=== PATIENT | female | born 1995 | race Caucasian/White ===

== ENCOUNTER 2019-03-12 09:08 | Emergency (ER) | payer OTHER ==
[~2019-03-12] VITALS: Ht 162.6 cm; Wt 59.0 kg
[~2019-03-12 09:08] MED LIST: ALAVERT10 MG PO; CELEXA20 MG PO; CLARITIN10 M2 PO; CLONAZEPAM1 MG PO; FLUOXETINE HCL20 M1 PO; HYDROCODON-ACE1 EA11 PO; NORCO 5-325 TA1 EACH PO; PROAIR HFA8.5 GM IH; SEROQUEL100 MG PO; SEROQUEL50 MG PO; TRAMADOL HCL50 MG PO; VICODIN 5-3001 EACH PO
--- OUTSIDE RECORDS SUMMARY | 2019-03-12 09:10 | XMS ---
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 Daniel has no Care Guidelines for this patient. [place] VISIT COUNT (12 MO.) 1 ANA Cavazos TOTAL 1 NOTE: Visits indicate total known visits. ED/C VISIT TRACKING (12 MO.) 03/12/2019 09:09 [facility] [place] TYPE: Emergency COMPLAINT: - SEIZURE INPATIENT VISIT TRACKING (12 MO.) No inpatient visits to display in this time frame [id number]
[2019-03-12] MEDS ORDERED: ATIVAN1 MG PO (09:25)
[2019-03-12] MEDS ORDERED: KEPPRA500 MG PO (10:49)
== END 2019-03-12 11:17 | disposition home or self-care (01) ==
LOC: ED 09:08
DX: G40.909 Epilepsy, unspecified, not intractable, without status epilepticus (principal); Z79.899 Other long term (current) drug therapy; F17.200 Nicotine dependence, unspecified, uncomplicated
CPT/HCPCS: 80053; 81001; 82542; 84702; 85025; 96361; 96374; 99284-25; 99406; J1953; J7030; J7060

== ENCOUNTER 2019-05-12 17:48 | Emergency (ER) | payer OTHER ==
[~2019-05-12] VITALS: Ht 162.6 cm; Wt 59.0 kg
--- OUTSIDE RECORDS SUMMARY | ~2019-05-12 | XMS | Encounter Summary ---
Demographics + + + | Address | [address] | | | [place] [address] | + + + | Home Phone | | + + + | Preferred Language | Unknown | + + + | Marital Status | | + + + | Buddhist Affiliation | Unknown | + + + | Race | Unknown | + + + | Ethnic Group | Unknown | + + + Author + + + | Author | [facility] | | | and [place] | + + + | Organization | [facility] | | | and [place] | + + + | Address | Unknown | + + + | Phone | Unavailable | + + + Support + + +---------+ + | Name | Relationship | Address | Phone | + + +---------+ + | Aniyah Ez | ECON | Unknown | | + + +---------+ + Care Team Providers + +------+ + | Care Wood Shop Teacher Name | Role | Phone | + +------+ + PCP | Unavailable | + +------+ + Encounter Details +--------+ + + + + | Date | Type | Department | Care Team | Description | +--------+ + + + + | 03/17/ | Hospital | [facility] | Richie Ng | | | 2012 | Encounter | HOSPITAL EMERGENCY | [address] | | | | | [address] [place], [place] | | | | | [place] | [address] | | | | | [address] | | | | | | [phone] | | | +--------+ + + + + Social History + +-------+ +--------+------+ | Tobacco Use | Types | Packs/Day | Years | Date | | | | | Used | | + +-------+ +--------+------+ | Never Assessed | | | | | + +-------+ +--------+------+ + + + | Sex Assigned at | Date Recorded | | | | + + + | Not on file | | + + + + + + + | Job Start Date | Occupation | Industry | + + + + | Not on file | Not on file | Not on file | + + + + + + + + | Travel History | Travel Start | Travel End | + + + + + + | No recent travel history available. | + + documented as of this encounter Plan of Treatment Not on filedocumented as of this encounter Visit Diagnoses Not on filedocumented in this encounter"
--- OUTSIDE RECORDS SUMMARY | ~2019-05-12 | XMS | Encounter Summary ---
Demographics + + + | Address | [address] | | | [place] [address] | + + + | Home Phone | | + + + | Preferred Language | Unknown | + + + | Marital Status | | + + + | Baptist Affiliation | Unknown | + + + | Race | Unknown | + + + | Ethnic Group | Unknown | + + + Author + + + | Author | [facility] | | | and [place] | + + + | Organization | [facility] | | | and [...] Team Providers + +------+ + | Care Racing Mechanic Name | Role | Phone | + +------+ + PCP | Unavailable | + +------+ + Encounter Details +--------+ + + + + | Date | Type | Department | Care Team | Description | +--------+ + + + + | 09/20/ | Hospital | [facility] | Mitchell Castillo | | | 2012 | Encounter | HOSPITAL EMERGENCY | MD [address] | | | | | CENTER [address] | [place] | | | | | [place] | [address] | | | | | [address] | [phone] | | | | | [phone] | | | +--------+ + + + [...]
--- OUTSIDE RECORDS SUMMARY | ~2019-05-12 | XMS | Encounter Summary ---
Demographics + + + | Address | [address] | | | [place] [address] | + + + | Home Phone | | + + + | Preferred Language | Unknown | + + + | Marital Status | | + + + | Uatsdin Affiliation | Unknown | + + + | Race | Unknown | + + + | Ethnic Group | Unknown | + + + Author + + + | Author | [facility] | | | and [place] | + + + | Organization | [facility] | | | and [...] Team Providers + +------+ + | Care Drum Tester Name | Role | Phone | + [...] | CENTER [address] | [address] [place], [place] | | | | | [place] | [address] | | | | | [address] | | | | | | [phone] | | | +--------+ + + + [...]
--- OUTSIDE RECORDS SUMMARY | ~2019-05-12 | XMS | Clinical Summary ---
Demographics + + + | Address | [address] [place] [address] | | | [place] [address] | + + + | Home Phone | | + + + | Preferred Language | Unknown | + + + | Marital Status | | + + + | Episcopal Affiliation | Unknown | + + + | Race | Unknown | + + + | Ethnic Group | Unknown | + + + Author + + + | Author | [facility] | | | and [place] | + + + | Organization | [facility] | | | and [...] Team Providers + +------+ + | Care Qa Automation Architect Name | Role | Phone | + +------+ + PCP | Unavailable | + +------+ + Allergies Not on File Medications Not on file Active Problems Not on file Social History + +-------+ +--------+------+ | Tobacco [...] recent travel history available. | + + Last Filed Vital Signs Not on file Plan of Treatment + + + + + | Health Maintenance | Due Date | Last Done | Comments | + + + + + | Vaccine: | | | | | Dtap/Tdap/Td (1 - | 8 | | | | Tdap) | | | | + + + + + | Vaccine: HPV (1 - | | | | | Female 2-dose | 8 | | | | series) | | | | + + + + + | Cervical Cancer | | | | | Screening (Pap) | 8 | | | + + + + + | Vaccine: Influenza | | | | | (#1) | 9 | | | + + + + + Results Not on filefrom Last 3 Months Insurance + +--------+ +--------+ +---------+--------+ | Payer | Benefi | Subscriber | Effect | Phone | Address | Type | | | t Plan | ID | silver | | | | | | / | | Dates | | | | | | Group | | | | | | + +--------+ +--------+ +---------+--------+ | [employer] | [employer] | [id number] | 03/20/ | [phone] | | Medica | | MEDICAID HMO | HEALTH | | 2019-P | 1 | | id | | | MDCD | | resent | | | | | | [place] | | | | | | + +--------+ +--------+ +---------+--------+ + +--------+ +--------+ + + | Guarantor Name | Accoun | Relation to | Date | Phone | Billing Address | | | t Type | Patient | of | | | | | | | | | | + +--------+ +--------+ + + | Tanika Funes | Person | Self [birth year] | [address] | | | al/Fam | | 1995 | [phone] | [place] | | | juan | | | [address] (Home) | [address] | + +--------+ +--------+ + +"
--- OUTSIDE RECORDS SUMMARY | ~2019-05-12 | XMS | Encounter Summary ---
Demographics + + + | Address | [address] | | | [place] [address] | + + + | Home Phone | | + + + | Preferred Language | Unknown | + + + | Marital Status | | + + + | Synagogue Affiliation | Unknown | + + + | Race | Unknown | + + + | Ethnic Group | Unknown | + + + Author + + + | Author | [facility] | | | and [place] | + + + | Organization | [facility] | | | [...] Team Providers + +------+ + | Care Teacher Adventure Education Name | Role | Phone | + +------+ + PCP | Unavailable | + +------+ + Encounter Details +--------+ + + + + | Date | Type | Department | Care Team | Description | +--------+ + + + + | 09/16/ | Hospital | [facility] | Elpidio Gaona | | | 2012 | Encounter | HOSPITAL EMERGENCY | [address] | | | | | CENTER [address] | [place], | | | | | [place] | [place] [address] | | | | | [address] | [phone] | | | | | [phone] | | | +--------+ + + + [...]
--- OUTSIDE RECORDS SUMMARY | ~2019-05-12 | XMS | Encounter Summary ---
Demographics + + + | Address | [address] | | | [place] [address] | + + + | Home Phone | | + + + | Preferred Language | Unknown | + + + | Marital Status | | + + + | Cheondoism Affiliation | Unknown | + + + | Race | Unknown | + + + | Ethnic Group | Unknown | + + + Author + + + | Author | [facility] | | | and [place] | + + + | Organization | [facility] | | [...] Team Providers + +------+ + | Care Laboratory Equipment Cleaner Name | Role | Phone | + +------+ + PCP | Unavailable | + +------+ + Encounter Details +--------+ + + + + | Date | Type | Department | Care Team | Description | +--------+ + + + + | 03/20/ | Hospital | [facility] | Annette Engel, | | | 2012 | Encounter | HOSPITAL MED SURG | [address] | | | | | [address] [place] | [place] [address] | | | | | [place] | [phone] | | | | | [address] | | | | | | [phone] | | | +--------+ + + + [...]
--- OUTSIDE RECORDS SUMMARY | ~2019-05-12 | XMS | Encounter Summary ---
Demographics + + + | Address | [address] | | | [place] [address] | + + + | Home Phone | | + + + | Preferred Language | Unknown | + + + | Marital Status | | + + + | Rastafari Affiliation | Unknown | + + + | Race | Unknown | + + + | Ethnic Group | Unknown | + + + Author + + + | Author | [facility] | | | and [place] | + + + | Organization | [facility] | | | and [place] | + + + | Address | Unknown | + + + | Phone | Unavailable | + + + Support + + +---------+ + | Name | Relationship | Address | Phone | + + +---------+ + | Aniyah zE | ECON | Unknown | | + + +---------+ + Care Team Providers + +------+ + | Care Quarryman Name | Role | Phone | + +------+ + PCP | Unavailable | + +------+ + Encounter Details +--------+ + + + + | Date | Type | Department | Care Team | Description | +--------+ + + + + | 04/23/ | Hospital | [facility] | Annette Engel, | | | 2012 | Encounter | HOSPITAL ICU [address] | MD [address] | | | | | [address] [place] | [place] [address] | | | | | [place] | [phone] | | | | | [address] | | | | | | [phone] | | | +--------+ + + + [...]
--- OUTSIDE RECORDS SUMMARY | ~2019-05-12 | XMS | Encounter Summary ---
Demographics + + + | Address | [address] | | | [place] [address] | + + + | Home Phone | | + + + | Preferred Language | Unknown | + + + | Marital Status | | + + + | Jehovah'S Witness Affiliation | Unknown | + + + | Race | Unknown | + + + | Ethnic Group | Unknown | + + + Author + + + | Author | [facility] | | | and [place] | + + + | Organization | [facility] | | | [...] Team Providers + +------+ + | Care Patient Access Associate Name | Role | Phone | + +------+ + PCP | Unavailable | + +------+ + Encounter Details +--------+ + + + + | Date | Type | Department | Care Team | Description | +--------+ + + + + | 08/17/ | Hospital | [facility] | Miguel Pitts | | | 2013 | Encounter | HOSPITAL EMERGENCY | [address] | | | | | C[address] | [address] [place] | | | | | [place] | [place] [address] | | | | | [address] | [phone] | | | | | [phone] | | | +--------+ + + + [...] Not on filedocumented as of this encounter Procedures + +--------+ + + + | Procedure Name | Priori | Date/Time | Associated Diagnosis | Comments | | | ty | | | | + +--------+ + + + | CBC W/AUTO | STAT | 08/17/2013 | | Results for this | | DIFFERENTIAL | | 11:32 AM | | procedure are in the | | | | PDT | | results section. | + +--------+ + + + | PHOSPHORUS | STAT | 08/17/2013 | | Results for this | | | | 11:32 AM | | procedure are in the | | | | PDT | | results section. | + +--------+ + + + | MAGNESIUM | STAT | 08/17/2013 | | Results for this | | | | 11:32 AM | | procedure are in the | | | | PDT | | results section. | + +--------+ + + + | COMPREHENSIVE | STAT | 08/17/2013 | | Results for this | | METABOLIC PANEL | | 11:32 AM | | procedure are in the | | | | PDT | | results section. | + +--------+ + + + documented in this encounter Results Phosphorus (08/17/2013 11:32 AM PDT) + +-------+ + + + | Component | Value | Ref Range | Performed | Pathologist | | | | | At | Signature | + +-------+ + + + | Phosphorus | 3.1 | 2.5 - 4.9 mg/dL | EXTERNAL | | | | | | LAB | | + +-------+ + + + + + | Specimen | + + | | + + + +---------+ + + | Performing | Address | City/State/Zipcode | Phone Number | | Organization | | | | + +---------+ + + | EXTERNAL LAB | | | | + +---------+ + + Magnesium (08/17/2013 11:32 AM PDT) + +-------+ + + + | Component | Value | Ref Range | Performed | Pathologist | | | | | At | Signature | + +-------+ + + + | Magnesium | 2.1 | 1.8 - 2.4 mg/dL | EXTERNAL | | | | | | LAB | | + +-------+ + + + + + | Specimen | + + | | + + + +---------+ + + | Performing | Address | City/State/Zipcode | Phone Number | | Organization | | | | + +---------+ + + | EXTERNAL LAB | | | | + +---------+ + + CBC w/ Auto Differential (08/17/2013 11:32 AM PDT) + +-------+ + + + | Component | Value | Ref Range | Performed | Pathologist | | | | | At | Signature | + +-------+ + + + | WBC | 8.3 | 4.5 - 13.5 | EXTERNAL | | | | | 1000/mm3 | LAB | | + +-------+ + + + | RBC | 4.51 | 3.90 - 5.10 | EXTERNAL | | | | | mil/mm3 | LAB | | + +-------+ + + + | HGB, | 12.6 | 11.7 - 15.3 | EXTERNAL | | | External | | g/dL | LAB | | + +-------+ + + + | HCT, | 37.9 | 37.7 - 47.0 % | EXTERNAL | | | External | | | LAB | | + +-------+ + + + | MCV | 84 | 78 - 98 fl | EXTERNAL | | | | | | LAB | | + +-------+ + + + | MCH | 27.9 | 26.0 - 34.0 pg | EXTERNAL | | | | | | LAB | | + +-------+ + + + | MCHC | 33.2 | 32.0 - 36.0 | EXTERNAL | | | | | g/dL | LAB | | + +-------+ + + + | RDW-CV | 14.2 | <=17.0 % | EXTERNAL | | | | | | LAB | | + +-------+ + + + | RDW-SD | 42.7 | 34.0 - 57.0 fL | EXTERNAL | | | | | | LAB | | + +-------+ + + + | Platelet | 395 | 150 - 450 | EXTERNAL | | | Count | | 1000/mm3 | LAB | | | Plasma | | | | | + +-------+ + + + | MPV | 10.6 | 9.4 - 12.3 FL | EXTERNAL | | | | | | LAB | | + +-------+ + + + | % Segmented | 65 | 39 - 73 % | EXTERNAL | | | | | | LAB | | | Neutrophils | | | | | + +-------+ + + + | % | 27 | 23 - 53 % | EXTERNAL | | | Lymphocytes | | | LAB | | + +-------+ + + + | % Monocytes | 6 | 3 - 13 % | EXTERNAL | | | | | | LAB | | + +-------+ + + + | % | 1 | 0 - 7 % | EXTERNAL | | | Eosinophils | | | LAB | | + +-------+ + + + | % Basophils | 1 | 0 - 2 % | EXTERNAL | | | | | | LAB | | + +-------+ + + + | Absolute | 5.4 | 2.50 - 8.50 | EXTERNAL | | | Neutrophils | | 1000/mm3 | LAB | | + +-------+ + + + | Absolute | 2.21 | 1.50 - 6.50 | EXTERNAL | | | Lymphocytes | | 1000/mm3 | LAB | | + +-------+ + + + | Absolute | 0.52 | 0.00 - 0.80 | EXTERNAL | | | Monocytes | | 1000/mm3 | LAB | | + +-------+ + + + | Absolute | 0.11 | 0.00 - 0.70 | EXTERNAL | | | Eosinophils | | 1000/mm3 | LAB | | + +-------+ + + + | Absolute | 0.05 | 0.00 - 0.20 | EXTERNAL | | | Basophils | | 1000/mm3 | LAB | | + +-------+ + + + | SLIDE | NO | | EXTERNAL | | | REVIEWED | | | LAB | | + +-------+ + + + + + | Specimen | + + | | + + + +---------+ + + | Performing | Address | City/State/Zipcode | Phone Number | | Organization | | | | + +---------+ + + | EXTERNAL LAB | | | | + +---------+ + + Comprehensive Metabolic Panel (08/17/2013 11:32 AM PDT) + +-------+ + + + | Component | Value | Ref Range | Performed | Pathologist | | | | | At | Signature | + +-------+ + + + | Sodium | 139 | 132 - 143 | EXTERNAL | | | | | mmol/L | LAB | | + +-------+ + + + | Potassium | 3.4 | 3.3 - 4.9 | EXTERNAL | | | | | mmol/L | LAB | | + +-------+ + + + | Cl | 105 | 95 - 108 mmol/L | EXTERNAL | | | | | | LAB | | + +-------+ + + + | CO2 | 23 | 23 - 34 mmol/L | EXTERNAL | | | | | | LAB | | + +-------+ + + + | Anion Gap | 11 | 7 - 16 | EXTERNAL | | | | | | LAB | | + +-------+ + + + | Calcium | 9.1 | 8.3 - 10.0 | EXTERNAL | | | | | mg/dL | LAB | | + +-------+ + + + | Glucose | 72 | 70 - 110 mg/dL | EXTERNAL | | | | | | LAB | | + +-------+ + + + | BUN, Bld | 6 | 5 - 26 mg/dL | EXTERNAL | | | | | | LAB | | + +-------+ + + + | Creatinine | 0.9 | 0.6 - 1.3 mg/dL | EXTERNAL | | | | | | LAB | | + +-------+ + + + | BUN/Creatin | 6.7 | 7.0 - 24.0 | EXTERNAL | | | ine Ratio | | RATIO | LAB | | + +-------+ + + + | Bilirubin, | 0.4 | <=1.2 mg/dL | EXTERNAL | | | Total | | | LAB | | + +-------+ + + + | Protein, | 7.4 | 6.6 - 8.5 g/dL | EXTERNAL | | | Total | | | LAB | | + +-------+ + + + | Albumin | 3.5 | 3.0 - 4.5 g/dL | EXTERNAL | | | | | | LAB | | + +-------+ + + + | Alkaline | 133 | 60 - 270 U/L | EXTERNAL | | | Phosphatase | | | LAB | | + +-------+ + + + | ALT, | 34 | 18 - 63 U/L | EXTERNAL | | | External | | | LAB | | + +-------+ + + + | AST, | 20 | <=38 U/L | EXTERNAL | | | External | | | LAB | | + +-------+ + + + + + | Specimen | + + | | + + + +---------+ + + | Performing | Address | City/State/Zipcode | Phone Number | | Organization | | | | + +---------+ + + | EXTERNAL LAB | | | | + +---------+ + + documented in this encounter Visit Diagnoses Not on filedocumented in this encounter"
--- OUTSIDE RECORDS SUMMARY | ~2019-05-12 | XMS | Encounter Summary ---
Demographics + + + | Address | [address] | | | [place] [address] | + + + | Home Phone | | + + + | Preferred Language | Unknown | + + + | Marital Status | | + + + | Hoahaoism Affiliation | Unknown | + + + | Race | Unknown | + + + | Ethnic Group | Unknown | + + + Author + + + | Author | [facility] | | | and [place] | + + + | Organization | [facility] | | | and [...] Team Providers + +------+ + | Care Newspaper Illustrator Name | Role | Phone | + +------+ + PCP | Unavailable | + +------+ + Encounter Details +--------+ + + + + | Date | Type | Department | Care Team | Description | +--------+ + + + + | 07/29/ | Hospital | [facility] | Mitchell Castillo | | | 2013 | Encounter | HOSPITAL EMERGENCY | [address] | | | | | [address] | [place] | | | | | [place] | [address] | | | | | [address] | [phone] | | | | | [phone] | | | +--------+ + + + [...] + | CBC W/AUTO | STAT | 07/29/2013 | | Results for this | | DIFFERENTIAL | | 11:53 AM | | procedure are in the | | | | PDT | | results section. | + +--------+ + + + | , SERUM, | STAT | 07/29/2013 | | Results for this | | QUAL | | 11:53 AM | | procedure are in the | | | | PDT | | results section. | + +--------+ + + + | COMPREHENSIVE | STAT | 07/29/2013 | | Results for this | | METABOLIC PANEL | | 11:53 AM | | procedure are in the | | | | PDT | | results section. | + +--------+ + + + documented in this encounter Results , Serum, Qual (07/29/2013 11:53 AM PDT) + + + + + + | Component | Value | Ref Range | Performed | Pathologist | | | | | At | Signature | + + + + + + | HCG | NEGATIVE | NEGATIVE | EXTERNAL | | | QUALITATIVE | | | LAB | | + + + + + + | Internal QC | POSITIVE | POSITIVE | EXTERNAL | | | | | | LAB | | + + + + + + + + | Specimen | + + | | + + + +---------+ + + | Performing | Address | City/State/Zipcode | Phone Number | | Organization | | | | + +---------+ + + | EXTERNAL LAB | | | | + +---------+ + + CBC w/ Auto Differential (07/29/2013 11:53 AM PDT) + +-------+ + + + | Component | Value | Ref Range | Performed | Pathologist | | | | | At | Signature | + +-------+ + + + | WBC | 11.6 | 4.5 - 13.5 | EXTERNAL | | | | | 1000/mm3 | LAB | | + +-------+ + + + | RBC | 4.84 | 3.90 - 5.10 | EXTERNAL | | | | | mil/mm3 | LAB | | + +-------+ + + + | HGB, | 13.5 | 11.7 - 15.3 | EXTERNAL | | | External | | g/dL | LAB | | + +-------+ + + + | HCT, | 40.7 | 37.7 - 47.0 % | EXTERNAL [...] +-------+ + + + | RDW-SD | 42.9 | 34.0 - 57.0 fL | EXTERNAL | | | | | | LAB | | + +-------+ + + + | Platelet | 434 | 150 - 450 | EXTERNAL | | | Count | | 1000/mm3 | LAB | | | Plasma | | | | | + +-------+ + + + | MPV | 10.4 | 9.4 - 12.3 FL | EXTERNAL | | | | | | LAB | | + +-------+ + + + | % Segmented | 76 | 39 - 73 % | EXTERNAL | | | | | | LAB | | | Neutrophils | | | | | + +-------+ + + + | % | 17 | 23 - 53 % | EXTERNAL [...] +-------+ + + + | Absolute | 8.79 | 2.50 - 8.50 | EXTERNAL | | | Neutrophils | | 1000/mm3 | LAB | | + +-------+ + + + | Absolute | 1.99 | 1.50 - 6.50 | EXTERNAL | | | Lymphocytes | | 1000/mm3 | LAB | | + +-------+ + + + | Absolute | 0.64 | 0.00 - 0.80 | EXTERNAL | | | Monocytes | | 1000/mm3 | LAB | | + +-------+ + + + | Absolute | 0.12 | 0.00 - 0.70 | EXTERNAL | | | Eosinophils | | 1000/mm3 | LAB | | + +-------+ + + + | Absolute | 0.07 | 0.00 - 0.20 | EXTERNAL | [...] + +---------+ + + Comprehensive Metabolic Panel (07/29/2013 11:53 AM PDT) + +-------+ + + + | Component | Value | Ref Range | Performed | Pathologist | | | | | At | Signature | + +-------+ + + + | Sodium | 138 | 132 - 143 | EXTERNAL | | | | | mmol/L | LAB | | + +-------+ + + + | Potassium | 3.8 | 3.3 - 4.9 | EXTERNAL | | | | | mmol/L | LAB | | + +-------+ + + + | Cl | 102 | 95 - 108 mmol/L | EXTERNAL | | | | | | LAB | | + +-------+ + + + | CO2 | 22 | 23 - 34 mmol/L | EXTERNAL | | | | | | LAB | | + +-------+ + + + | Anion Gap | 14 | 7 - 16 | EXTERNAL | | | | | | LAB | | + +-------+ + + + | Calcium | 9.6 | 8.3 - 10.0 | EXTERNAL | | | | | mg/dL | LAB | | + +-------+ + + + | Glucose | 81 | 70 - 110 mg/dL | EXTERNAL | | | | | | LAB | | + +-------+ + + + | BUN, Bld | 10 | 5 - 26 mg/dL | EXTERNAL | | | | | | LAB | | + +-------+ + + + | Creatinine | 1 | 0.6 - 1.3 mg/dL | EXTERNAL | | | | | | LAB | | + +-------+ + + + | BUN/Creatin | 10 | 7.0 - 24.0 | EXTERNAL | | | ine Ratio | | RATIO | LAB | | + +-------+ + + + | Bilirubin, | 0.3 | <=1.2 mg/dL | EXTERNAL | | | Total | | | LAB | | + +-------+ + + + | Protein, | 8.4 | 6.6 - 8.5 g/dL | EXTERNAL | | | Total | | | LAB | | + +-------+ + + + | Albumin | 3.9 | 3.0 - 4.5 g/dL | EXTERNAL | | | | | | LAB | | + +-------+ + + + | Alkaline | 147 | 60 - 270 U/L | EXTERNAL | | | Phosphatase | | | LAB | | + +-------+ + + + | ALT, | 41 | 18 - 63 U/L | EXTERNAL | | | External | | | LAB | | + +-------+ + + + | AST, | 23 | <=38 U/L | EXTERNAL | | [...]
--- OUTSIDE RECORDS SUMMARY | ~2019-05-12 | XMS | Encounter Summary ---
Demographics + + + | Address | [address] | | | [place] [address] | + + + | Home Phone | | + + + | Preferred Language | Unknown | + + + | Marital Status | | + + + | Sikhism Affiliation | Unknown | + + + | Race | Unknown | + + + | Ethnic Group | Unknown | + + + Author + + + | Author | [facility] | | | and [place] | + + + | Organization | [facility] | | [...] Team Providers + +------+ + | Care Applications Support Analyst Name | Role | Phone | + +------+ + PCP | Unavailable | + +------+ + Encounter Details +--------+ + + + + | Date | Type | Department | Care Team | Description | +--------+ + + + + | 05/01/ | Hospital | [facility] | Elpidio Gaona | | | 2012 | Encounter | HOSPITAL EMERGENCY | MD [address] | | | | | C[address] | [place], | | | | | [place] | [place] [address] | | | | | [address] | [phone] | | | | | [phone] | | | +--------+ + + + [...]
--- OUTSIDE RECORDS SUMMARY | ~2019-05-12 | XMS | Encounter Summary ---
Demographics + + + | Address | [address] | | | [place] [address] | + + + | Home Phone | | + + + | Preferred Language | Unknown | + + + | Marital Status | | + + + | Voodoo Affiliation | Unknown | + + + | Race | Unknown | + + + | Ethnic Group | Unknown | + + + Author + + + | Author | [facility] | | | and [place] | + + + | Organization | [facility] | | [...] Team Providers + +------+ + | Care Workforce Management Analyst Name | Role | Phone | + +------+ + PCP | Unavailable | + +------+ + Encounter Details +--------+ + + + + | Date | Type | Department | Care Team | Description | +--------+ + + + + | 10/14/ | Hospital | [facility] | Miguel Pitts | | | 2012 | Encounter | HOSPITAL EMERGENCY | MD [address] | | | | | C[address] | [address] | | | | | [place] | [place] [address] | | | | | [address] | [phone] | | | | | [phone] | | | +--------+ + + + [...]
--- OUTSIDE RECORDS SUMMARY | ~2019-05-12 | XMS | Encounter Summary ---
Demographics + + + | Address | [address] | | | [place] [address] | + + + | Home Phone | | + + + | Preferred Language | Unknown | + + + | Marital Status | | + + + | Yarsanism Affiliation | Unknown | + + + | Race | Unknown | + + + | Ethnic Group | Unknown | + + + Author + + + | Author | [facility] | | | and [place] | + + + | Organization | [facility] | | | [...] Team Providers + +------+ + | Care Cattle Manager Name | Role | Phone | + [...] | | | [place] | [address] | | | | | [address] | [phone] | | | | | [phone] | | | +--------+ + + + [...]
--- OUTSIDE RECORDS SUMMARY | ~2019-05-12 | XMS | Encounter Summary ---
Demographics + + + | Address | [address] | | | [place] [address] | + + + | Home Phone | | + + + | Preferred Language | Unknown | + + + | Marital Status | | + + + | Christian Affiliation | Unknown | + + + | Race | Unknown | + + + | Ethnic Group | Unknown | + + + Author + + + | Author | [facility] | | | and [place] | + + + | Organization | [facility] | | | [...] Team Providers + +------+ + | Care Capacitor Inspector Name | Role | Phone | + +------+ + PCP | Unavailable | + +------+ + Encounter Details +--------+ + + + + | Date | Type | Department | Care Team | Description | +--------+ + + + + | 12/08/ | Hospital | [facility] | Elpidio Gaona | | | 2012 | Encounter | HOSPITAL EMERGENCY | [address] | | | | | C[address] | [place] | | | | | [place] | [place] [address] | | | | | [address] | [phone] | | | | | [phone] | | | +--------+ + + + [...]
--- OUTSIDE RECORDS SUMMARY | ~2019-05-12 | XMS | Encounter Summary ---
Demographics + + + | Address | [address] | | | [place] [address] | + + + | Home Phone | | + + + | Preferred Language | Unknown | + + + | Marital Status | | + + + | Hindu Affiliation | Unknown | + + + | Race | Unknown | + + + | Ethnic Group | Unknown | + + + Author + + + | Author | [facility] | | | and [place] | + + + | Organization | [facility] | | | and [...] Team Providers + +------+ + | Care Demand Equipment Repairer Name | Role | Phone | + +------+ + PCP | Unavailable | + +------+ + Encounter Details +--------+ + + + + | Date | Type | Department | Care Team | Description | +--------+ + + + + | 09/16/ | Hospital | [facility] | Yuliana Rivera | | | 2012 | Encounter | HOSPITAL RESPIRATORY | [address] | | | | | THERAPY [address] | [place] [address] | | | | | [address] [place] | [phone] | | | | | [address] | | | | | | [phone] | | | +--------+ + + + [...]
--- OUTSIDE RECORDS SUMMARY | ~2019-05-12 | XMS | Encounter Summary ---
Demographics + + + | Address | [address] | | | [place] [address] | + + + | Home Phone | | + + + | Preferred Language | Unknown | + + + | Marital Status | | + + + | Caodaism Affiliation | Unknown | + + + | Race | Unknown | + + + | Ethnic Group | Unknown | + + + Author + + + | Author | [facility] | | | and [place] | + + + | Organization | [facility] | | | [...] Team Providers + +------+ + | Care Stabilizer Operator Name | Role | Phone | + +------+ + PCP | Unavailable | + +------+ + Encounter Details +--------+ + + + + | Date | Type | Department | Care Team | Description | +--------+ + + + + | 01/19/ | Hospital | [facility] | Marissa Pichardo, | | | 2015 | Encounter | HOSPITAL EMERGENCY | RN RENAL [address] | | | | | C[address] | [place] | | | | | [place] | [id number] | | | | | [address] | | | | | | [phone] | | | +--------+ + + + [...] | + +--------+ + + + | URINALYSIS WITH | STAT | 01/20/2016 | | Results for this | | MICROSCOPIC WITH | | 1:44 PM | | procedure are in the | | CULTURE IF INDICATED | | PDT | | results section. | + +--------+ + + + | XR CHEST PA OR AP | Routin | 01/20/2016 | | Results for this | | | e | 1:05 PM | | procedure are in the | | | | PDT | | results section. | + +--------+ + + + documented in this encounter Results Urinalysis with Microscopic with Culture if Indicated (01/20/2016 1:44 PM PDT) + + + + + + | Component | Value | Ref Range | Performed | Pathologist | | | | | At | Signature | + + + + + + | Source | Clean Catch / VOID | | EXTERNAL | | | | | | LAB | | + + + + + + | Clarity | SLIGHTLY CLOUDY | CLEAR | EXTERNAL | | | | | | LAB | | + + + + + + | Color, | ANEESH | | EXTERNAL | | | Urine | | | LAB | | + + + + + + | Specific | 1.015 | 1.005 - 1.030 | EXTERNAL | | | [place], | | | LAB | | | Urine | | | | | + + + + + + | pH, Urine | 6 | 5.0 - 7.0 pH | EXTERNAL | | | | | | LAB | | + + + + + + | Leukocyte | 25 | NEGATIVE /uL | EXTERNAL | | | Esterase, | | | LAB | | | Urine | | | | | + + + + + + | Nitrite, | POSITIVE | NEGATIVE | EXTERNAL | | | Urine | | | LAB | | + + + + + + | Protein, | NEGATIVE | NEGATIVE mg/dL | EXTERNAL | | | Urine | | | LAB | | + + + + + + | Glucose, | NORMAL | NORMAL mg/dL | EXTERNAL | | | Urine | | | LAB | | + + + + + + | Reducing | NOT REQUIRED | | EXTERNAL | | | Substance, | | | LAB | | | UA, POC | | | | | + + + + + + | Ketones, | 5 | NEGATIVE mg/dL | EXTERNAL | | | Urine | | | LAB | | + + + + + + | Urobilinoge | NORMAL | NORMAL mg/dL | EXTERNAL | | | n, Urine | | | LAB | | + + + + + + | Bilirubin, | NEGATIVE | NEGATIVE mg/dL | EXTERNAL | | | Urine | | | LAB | | + + + + + + | Blood, | 10 | NEGATIVE /uL | EXTERNAL | | | Urine | | | LAB | | + + + + + + | WBC UA | 6-10 | </= 5 /HPF | EXTERNAL | | | | | | LAB | | + + + + + + | RBC COUNT | NONE SEEN | </= 5 PER HPF | EXTERNAL | | | | | | LAB | | + + + + + + | Bacteria, | MANY | NONE SEEN /HPF | EXTERNAL | | | UA | | | LAB | | + + + + + + | Culture | YES | | EXTERNAL | | | Indicated | | | LAB | | + + + + + + | SQUAMOUS | MODERATE | /LPF | EXTERNAL | | | EPITHELIAL | | | LAB | | | UA | | | | | + + + + + + + + | Specimen | + + | | + + + +---------+ + + | Performing | Address | City/State/Zipcode | Phone Number | | Organization | | | | + +---------+ + + | EXTERNAL LAB | | | | + +---------+ + + XR Chest PA or AP (01/20/2016 1:05 PM PDT) + + | Specimen | + + | | + + + + + | Narrative | Performed At | + + + | Clinical Indication: Reason for study: asthma/cough/congestion | | | . Findings: Both lungs are well inflated. No infiltrate, | | | pneumonia, or interstitial thickening is present. The pleural | | | spaces are normal. There is no sign of lymphadenopathy in the | | | mediastinum or hilar regions. The cardiac contours are normal. | | | The bony structures are intact. Summary: No radiographic | | | evidence of pneumonia. Read By: ANNMARIE LU MD Date: | | | 01/20/2016 14:02 | | + + + + + | Procedure Note | + + | Hu, Merritt Results In - 03/13/2017 11:32 PM PST | | Clinical Indication: Reason for study: | | asthma/cough/congestion | | | | . | | | | Findings: Both lungs are well inflated. No infiltrate, pneumonia, or | | interstitial thickening is present. The pleural spaces are normal. There | | is no sign of lymphadenopathy in the mediastinum or hilar regions. | | | | The cardiac contours are normal. The bony structures are intact. | | | | Summary: No radiographic evidence of pneumonia. | | | | Read By: ANNMARIE LU MD | | Date: 01/20/2016 14:02 | | | + + documented in this encounter Visit Diagnoses Not on filedocumented in this encounter"
--- OUTSIDE RECORDS SUMMARY | ~2019-05-12 | XMS | Encounter Summary ---
Demographics + + + | Address | [address] | | | [place] [address] | + + + | Home Phone | | + + + | Preferred Language | Unknown | + + + | Marital Status | | + + + | Catholic Affiliation | Unknown | + + + | Race | Unknown | + + + | Ethnic Group | Unknown | + + + Author + + + | Author | [facility] | | | and [place] | + + + | Organization | [facility] | | | and [...] Team Providers + +------+ + | Care Registered Diet Technician Name | Role | Phone | + +------+ + PCP | Unavailable | + +------+ + Encounter Details +--------+ + + + + | Date | Type | Department | Care Team | Description | +--------+ + + + + | 09/16/ | Hospital | [facility] | Yuliana Rivera | | | 2012 | Encounter | HOSPITAL RESPIRATORY | [address] | | | | | THERAPY [address] | [place] [address] | | | | | [place] | [phone] | | | | | [address] | | | | | | [phone] | | | +--------+ + + + [...]
--- OUTSIDE RECORDS SUMMARY | ~2019-05-12 | XMS | Encounter Summary ---
Demographics + + + | Address | [address] | | | [place] [address] | + + + | Home Phone | | + + + | Preferred Language | Unknown | + + + | Marital Status | | + + + | Hindu Affiliation | Unknown | + + + | Race | Unknown | + + + | Ethnic Group | Unknown | + + + Author + + + | Author | [facility] | | | and [place] | + + + | Organization | [facility] | | | [...] Team Providers + +------+ + | Care Information Security Specialist Name | Role | Phone | + +------+ + PCP | Unavailable | + +------+ + Encounter Details +--------+ + + + + | Date | Type | Department | Care Team | Description | +--------+ + + + + | 08/04/ | [facility] | [facility] | Wilfred Arguello | | | 2013 | Encounter | HOSPITAL EMERGENCY | [address] | | | | | [place] [address] | [facility] | | | | | [address] [place] | [place] [address] | | | | | [address] | [phone] | | | | | [phone] | | | +--------+ + + + [...] + | CBC W/AUTO | STAT | 08/04/2013 | | Results for this | | DIFFERENTIAL | | 1:23 PM | | procedure are in the | | | | PDT | | results section. | + +--------+ + + + | , SERUM, | STAT | 08/04/2013 | | Results for this | | QUAL | | 1:23 PM | | procedure are in the | | | | PDT | | results section. | + +--------+ + + + | COMPREHENSIVE | STAT | 08/04/2013 | | Results for this | | METABOLIC PANEL | | 1:23 PM | | procedure are in the | | | | PDT | | results section. | + +--------+ + + + documented in this encounter Results , Serum, Qual (08/04/2013 1:23 PM PDT) + + + + + [...] +---------+ + + CBC w/ Auto Differential (08/04/2013 1:23 PM PDT) + +-------+ + + + | Component | Value | Ref Range | Performed | Pathologist | | | | | At | Signature | + +-------+ + + + | WBC | 8.9 | 4.5 - 13.5 | EXTERNAL | | | | | 1000/mm3 | LAB | | + +-------+ + + + | RBC | 4.47 | 3.90 - 5.10 | EXTERNAL | | | | | mil/mm3 | LAB | | + +-------+ + + + | HGB, | 12.4 | 11.7 - 15.3 | EXTERNAL | | | External | | g/dL | LAB | | + +-------+ + + + | HCT, | 37.7 | 37.7 - 47.0 % | EXTERNAL | | | External | | | LAB | | + +-------+ + + + | MCV | 84 | 78 - 98 fl | EXTERNAL | | | | | | LAB | | + +-------+ + + + | MCH | 27.7 | 26.0 - 34.0 pg | EXTERNAL | | | | | | LAB | | + +-------+ + + + | MCHC | 32.9 | 32.0 - 36.0 | EXTERNAL | | | | | g/dL | LAB | | + +-------+ + + + | RDW-CV | 14.1 | <=17.0 % | EXTERNAL | | | | | | LAB | | + +-------+ + + + | RDW-SD | 42.5 | 34.0 - 57.0 fL | EXTERNAL | | | | | | LAB | | + +-------+ + + + | Platelet | 382 | 150 - 450 | EXTERNAL | | | Count | | 1000/mm3 | LAB | | | Plasma | | | | | + +-------+ + + + | MPV | 10.4 | 9.4 - 12.3 FL | EXTERNAL | | | | | | LAB | | + +-------+ + + + | % Segmented | 67 | 39 - 73 % | EXTERNAL | | | | | | LAB | | | Neutrophils | | | | | + +-------+ + + + | % | 24 | 23 - 53 % | EXTERNAL | | | Lymphocytes | | | LAB | | + +-------+ + + + | % Monocytes | 7 | 3 - 13 % | EXTERNAL [...] +-------+ + + + | Absolute | 6.02 | 2.50 - 8.50 | EXTERNAL | | | Neutrophils | | 1000/mm3 | LAB | | + +-------+ + + + | Absolute | 2.17 | 1.50 - 6.50 | EXTERNAL | | | Lymphocytes | | 1000/mm3 | LAB | | + +-------+ + + + | Absolute | 0.59 | 0.00 - 0.80 | EXTERNAL | [...] + +---------+ + + Comprehensive Metabolic Panel (08/04/2013 1:23 PM PDT) + +-------+ + + + | Component | Value | Ref Range | Performed | Pathologist | | | | | At | Signature | + +-------+ + + + | Sodium | 139 | 132 - 143 | EXTERNAL | | | | | mmol/L | LAB | | + +-------+ + + + | Potassium | 3.6 | 3.3 - 4.9 | EXTERNAL | | | | | mmol/L | LAB | | + +-------+ + + + | Cl | 104 | 95 - 108 mmol/L | EXTERNAL | | | | | | LAB | | + +-------+ + + + | CO2 | 23 | 23 - 34 mmol/L | EXTERNAL | | | | | | LAB | | + +-------+ + + + | Anion Gap | 12 | 7 - 16 | EXTERNAL | | | | | | LAB | | + +-------+ + + + | Calcium | 9 | 8.3 - 10.0 | EXTERNAL | | | | | mg/dL | LAB | | + +-------+ + + + | Glucose | 82 | 70 - 110 mg/dL | EXTERNAL | | | | | | LAB | | + +-------+ + + + | BUN, Bld | 11 | 5 - 26 mg/dL | EXTERNAL | | | | | | LAB | | + +-------+ + + + | Creatinine | 1 | 0.6 - 1.3 mg/dL | EXTERNAL | | | | | | LAB | | + +-------+ + + + | BUN/Creatin | 11 | 7.0 - 24.0 | EXTERNAL | | | ine Ratio | | RATIO | LAB | | + +-------+ + + + | Bilirubin, | 0.2 | <=1.2 mg/dL | EXTERNAL | | | Total | | | LAB | | + +-------+ + + + | Protein, | 7.6 | 6.6 - 8.5 g/dL | EXTERNAL | | | Total | | | LAB | | + +-------+ + + + | Albumin | 3.5 | 3.0 - 4.5 g/dL | EXTERNAL | | | | | | LAB | | + +-------+ + + + | Alkaline | 130 | 60 - 270 U/L | EXTERNAL | | | Phosphatase | | | LAB | | + +-------+ + + + | ALT, | 31 | 18 - 63 U/L | EXTERNAL | | | External | | | LAB | | + +-------+ + + + | AST, | 19 | <=38 U/L | EXTERNAL | | [...]
--- OUTSIDE RECORDS SUMMARY | ~2019-05-12 | XMS | Encounter Summary ---
Demographics + + + | Address | [address] | | | [place] [address] | + + + | Home Phone | | + + + | Preferred Language | Unknown | + + + | Marital Status | | + + + | Episcopal Affiliation | Unknown | + + + | Race | Unknown | + + + | Ethnic Group | Unknown | + + + Author + + + | Author | [facility] | | | and [place] | + + + | Organization | [facility] | | | [...] Team Providers + +------+ + | Care Nuclear Fuel Processing Technician Name | Role | Phone | + +------+ + PCP | Unavailable | + +------+ + Encounter Details +--------+ + + + + | Date | Type | Department | Care Team | Description | +--------+ + + + + | 08/04/ | [facility] | [facility] | Wilfred Arguello | | | 2013 | Encounter | HOSPITAL EMERGENCY | [address] | | | | | ENERGY [address] | [facility] | | | | | [address] [place] | [employer] [place] [address] | | | | | [address] | [phone] | | | | | [phone] | | | +--------+ + + + [...]
--- OUTSIDE RECORDS SUMMARY | ~2019-05-12 | XMS | Encounter Summary ---
Demographics + + + | Address | [address] | | | [place] [address] | + + + | Home Phone | | + + + | Preferred Language | Unknown | + + + | Marital Status | | + + + | Caodaism Affiliation | Unknown | + + + | Race | Unknown | + + + | Ethnic Group | Unknown | + + + Author + + + | Author | [facility] | | | and [place] | + + + | Organization | [facility] | | [...] Team Providers + +------+ + | Care Gym Manager Name | Role | Phone | + +------+ + PCP | Unavailable | + +------+ + Encounter Details +--------+ + + + + | Date | Type | Department | Care Team | Description | +--------+ + + + + | 01/19/ | Hospital | [facility] | Marissa Pichardo, | | | 2015 | Encounter | HOSPITAL EMERGENCY | SOW FARM TECHNICIAN [address] | | | | | CENTER [address] | [place] | | | | | [place] | [phone] | | | | | [address] | | | | | | [phone] | | | +--------+ + + + [...] - 1.030 | EXTERNAL | | | [place], | | | LAB | | | [...]
--- OUTSIDE RECORDS SUMMARY | ~2019-05-12 | XMS | Encounter Summary ---
Demographics + + + | Address | [address] | | | [place] [address] | + + + | Home Phone | | + + + | Preferred Language | Unknown | + + + | Marital Status | | + + + | Mu-Ism Affiliation | Unknown | + + + | Race | Unknown | + + + | Ethnic Group | Unknown | + + + Author + + + | Author | [facility] | | | and [place] | + + + | Organization | [facility] | [...] Team Providers + +------+ + | Care Vp Respiratory Name | Role | Phone | + [...] [address] [place] | [place] [address] | | | | | [place] | [phone] | | | | | [address] | | | | | | [phone] | | | +--------+ + + + [...]
--- OUTSIDE RECORDS SUMMARY | ~2019-05-12 | XMS | Encounter Summary ---
Demographics + + + | Address | [address] | | | [place] [address] | + + + | Home Phone | | + + + | Preferred Language | Unknown | + + + | Marital Status | | + + + | Spiritism Affiliation | Unknown | + + + | Race | Unknown | + + + | Ethnic Group | Unknown | + + + Author + + + | Author | [facility] | | | and [place] | + + + | Organization | [facility] | | | and [...] Team Providers + +------+ + | Care Paint Roller Cover Machine Setter Name | Role | Phone | + +------+ + PCP | Unavailable | + +------+ + Encounter Details +--------+ + + + + | Date | Type | Department | Care Team | Description | +--------+ + + + + | 01/28/ | Hospital | [facility] | Yuliana Rivera | | | 2012 | Encounter | HOSPITAL RESPIRATORY | [address] | | | | | THERAPY [address] | [place] [address] | | | | | [address] [place] | [phone] | | | | | [address] | | | | | | [phone] | | | +--------+ + + + [...]
--- OUTSIDE RECORDS SUMMARY | ~2019-05-12 | XMS | Clinical Summary ---
Demographics + + + | Address | [address] [place] [address] | | | [place] [address] | + + + | Home Phone | | + + + | Preferred Language | Unknown | + + + | Marital Status | | + + + | Rastafarian Affiliation | Unknown | + + + | Race | Unknown | + + + | Ethnic Group | Unknown | + + + Author + + + | Author | [facility] | | | and [place] | + + + | Organization | [facility] | | | and [...] Team Providers + +------+ + | Care Manager Program Name | Role | Phone | + [...] | [employer] | [facility] | [id number] | 03/20/ | [phone] | | Medica [...] | Self | [birth year] | [address] | | | al/Fam | | 1995 | [phone] | [place] | | | juan | | | 5 (Home) | [address] | + +--------+ +--------+ + +"
--- OUTSIDE RECORDS SUMMARY | ~2019-05-12 | XMS | Encounter Summary ---
Demographics + + + | Address | [address] | | | [place] [address] | + + + | Home Phone | | + + + | Preferred Language | Unknown | + + + | Marital Status | | + + + | Jewish Affiliation | Unknown | + + + | Race | Unknown | + + + | Ethnic Group | Unknown | + + + Author + + + | Author | [facility] | | | and [place] | + + + | Organization | [facility] | | [...] Team Providers + +------+ + | Care Aircraft Maintenance Instructor Name | Role | Phone | + +------+ + PCP | Unavailable | + +------+ + Encounter Details +--------+ + + + + | Date | Type | Department | Care Team | Description | +--------+ + + + + | 05/18/ | Hospital | [facility] | Miguel Pitts | | | 2013 | Encounter | HOSPITAL EMERGENCY | [address] | | | | | C[address] | [address] | | | | | [place] | [place] [address] | | | | | [address] | [phone] | | | | | [phone] | | | +--------+ + + + [...] | + +--------+ + + + | DRUGS OF ABUSE, | Routin | 05/18/2013 | | Results for this | | SCREEN, URINE | e | 5:45 PM | | procedure are in the | | | | PST | | results section. | + +--------+ + + + | URINALYSIS WITH | STAT | 05/18/2013 | | Results for this | | MICROSCOPIC WITH | | 5:31 PM | | procedure are in the | | CULTURE IF INDICATED | | PST | | results section. | + +--------+ + + + | CBC W/AUTO | Routin | 05/18/2013 | | Results for this | | DIFFERENTIAL | e | 5:31 PM | | procedure are in the | | | | PST | | results section. | + +--------+ + + + | ALCOHOL | Routin | 05/18/2013 | | Results for this | | | e | 5:31 PM | | procedure are in the | | | | PST | | results section. | + +--------+ + + + | ACETAMINOPHEN LEVEL | Routin | 05/18/2013 | | Results for this | | | e | 5:31 PM | | procedure are in the | | | | PST | | results section. | + +--------+ + + + | SALICYLATE LEVEL | Routin | 05/18/2013 | | Results for this | | | e | 5:31 PM | | procedure are in the | | | | PST | | results section. | + +--------+ + + + | COMPREHENSIVE | Routin | 05/18/2013 | | Results for this | | METABOLIC PANEL | e | 5:31 PM | | procedure are in the | | | | PST | | results section. | + +--------+ + + + documented in this encounter Results Drugs of Abuse, Screen, Urine (05/18/2013 5:45 PM PST) + +-------+ + + + | Component | Value | Ref Range | Performed | Pathologist | | | | | At | Signature | + +-------+ + + + | THC RESULT | NEG | NEG ng/mL | EXTERNAL | | | | | | LAB | | + +-------+ + + + | Phencyclidi | NEG | NEG ng/mL | EXTERNAL | | | ne | | | LAB | | + +-------+ + + + | Cocaine | NEG | NEG ng/mL | EXTERNAL | | | | | | LAB | | + +-------+ + + + | Methampheta | NEG | NEG ng/mL | EXTERNAL | | | mine | | | LAB | | + +-------+ + + + | Opiates | NEG | NEG ng/mL | EXTERNAL | | | | | | LAB | | + +-------+ + + + | Amphetamine | NEG | NEG ng/mL | EXTERNAL | | | s | | | LAB | | + +-------+ + + + | Benzodiazep | NEG | NEG ng/mL | EXTERNAL | | | hillary | | | LAB | | | Screen, | | | | | | Urine | | | | | + +-------+ + + + | TCA Scrn | NEG | NEG ng/mL | EXTERNAL | | | | | | LAB | | + +-------+ + + + | Methadone | NEG | NEG ng/mL | EXTERNAL | | | Screen, | | | LAB | | | Urine | | | | | + +-------+ + + + | Barbiturate | NEG | NEG ng/mL | EXTERNAL | | | s | | | LAB | | + +-------+ + + + | Oxycodone | NEG | NEG ng/mL | EXTERNAL | | | | | | LAB | | + +-------+ + + + | Propoxyphen | NEG | NEG ng/mL | EXTERNAL | | | e | | | LAB | | + +-------+ + + + | Buprenorphi | NEG | NEG ng/mL | EXTERNAL | | | ne | | | LAB | | + +-------+ + + + + + | Specimen | + + | | + + + +---------+ + + | Performing | Address | City/State/Zipcode | Phone Number | | Organization | | | | + +---------+ + + | EXTERNAL LAB | | | | + +---------+ + + Urinalysis with Microscopic with Culture if Indicated (05/18/2013 5:31 PM PST) + + + + + + | Component | Value | Ref Range | Performed | Pathologist | | | | | At | Signature | + + + + + + | Source | VOIDED | | EXTERNAL | | | | | | LAB | | + + + + + + | Color, | YELLOW | YELLOW | EXTERNAL | | | Urine | | | LAB | | + + + + + + | Clarity | CLEAR | CLEAR | EXTERNAL | | | [...] + + + + | Ketones, | NEGATIVE | NEGATIVE mg/dL | EXTERNAL | | | Urine | | | LAB | | + + + + + + | Specific | 1.015 | 1.005 - 1.030 | EXTERNAL | | | [place], | | | LAB | | | Urine | | | | | + + + + + + | pH, Urine | 6.5 | 5.0 - 7.0 pH | EXTERNAL [...] + + + + | Nitrite, | NEGATIVE | NEGATIVE | EXTERNAL | | | Urine | | | LAB | | + + + + + + | Blood, | NEGATIVE | NEGATIVE /uL | EXTERNAL | | | Urine | | | LAB | | + + + + + + | Leukocyte | 25 | NEGATIVE /uL | EXTERNAL | | | Esterase, | | | LAB | | | Urine | | | | | + + + + + + | WBC UA | NONE SEEN | </= 5 /HPF | EXTERNAL | | | | | | LAB | | + + + + + + | RBC COUNT | NONE SEEN | </= 5 PER HPF | EXTERNAL | | | | | | LAB | | + + + + + + | Culture | NO | | EXTERNAL | | | Indicated | | | LAB | | + + + + + + | Bacteria, | NONE SEEN | NONE SEEN /HPF | EXTERNAL | | | UA | | | LAB | | + + + + + + | SQUAMOUS | NONE SEEN | FEW /LPF | EXTERNAL | | | EPITHELIAL [...] +---------+ + + CBC w/ Auto Differential (05/18/2013 5:31 PM PST) + +-------+ + + + | Component | Value | Ref Range | Performed | Pathologist | | | | | At | Signature | + +-------+ + + + | WBC | 11.1 | 4.5 - 13.5 | EXTERNAL | | | | | 1000/mm3 | LAB | | + +-------+ + + + | RBC | 4.64 | 3.90 - 5.10 | EXTERNAL | | | | | mil/mm3 | LAB | | + +-------+ + + + | HGB, | 13 | 11.7 - 15.3 | EXTERNAL | | | External | | g/dL | LAB | | + +-------+ + + + | HCT, | 39.4 | 37.7 - 47.0 % | EXTERNAL | | | External | | | LAB | | + +-------+ + + + | MCV | 85 | 78 - 98 fl | EXTERNAL | | | | | | LAB | | + +-------+ + + + | MCH | 28 | 26.0 - 34.0 pg | EXTERNAL | | | | | | LAB | | + +-------+ + + + | MCHC | 33 | 32.0 - 36.0 % | EXTERNAL | | | | | | LAB | | + +-------+ + + + | RDW-CV | 14.6 | <=17.0 % | EXTERNAL | | | | | | LAB | | + +-------+ + + + | RDW-SD | 44.5 | 34.0 - 57.0 fL | EXTERNAL | | | | | | LAB | | + +-------+ + + + | Platelet | 396 | 150 - 450 | EXTERNAL | | | Count | | 1000/mm3 | LAB | | | Plasma | | | | | + +-------+ + + + | MPV | 10.7 | 9.4 - 12.3 FL | EXTERNAL | | | | | | LAB | | + +-------+ + + + | % Segmented | 63 | 39 - 73 % | EXTERNAL | | | | | | LAB | | | Neutrophils | | | | | + +-------+ + + + | % | 29 | 23 - 53 % | EXTERNAL | | | Lymphocytes | | | LAB | | + +-------+ + + + | % Monocytes | 7 | 3 - 13 % | EXTERNAL | | | | | | LAB | | + +-------+ + + + | % | 2 | 0 - 7 % | EXTERNAL | | | Eosinophils | | | LAB | | + +-------+ + + + | % Basophils | 1 | 0 - 2 % | EXTERNAL | | | | | | LAB | | + +-------+ + + + | Absolute | 6.95 | 2.50 - 8.50 | EXTERNAL | | | Neutrophils | | 1000/mm3 | LAB | | + +-------+ + + + | Absolute | 3.18 | 1.50 - 6.50 | EXTERNAL | | | Lymphocytes | | 1000/mm3 | LAB | | + +-------+ + + + | Absolute | 0.72 | 0.00 - 0.80 | EXTERNAL | | | Monocytes | | 1000/mm3 | LAB | | + +-------+ + + + | Absolute | 0.17 | 0.00 - 0.70 | EXTERNAL | | | Eosinophils | | 1000/mm3 | LAB | | + +-------+ + + + | Absolute | 0.06 | 0.00 - 0.20 | EXTERNAL | [...] | | | + +---------+ + + Salicylate Level (05/18/2013 5:31 PM PST) + +-------+ + + + | Component | Value | Ref Range | Performed | Pathologist | | | | | At | Signature | + +-------+ + + + | Salicylate | 3 | 3 - 20 mg/dL | EXTERNAL | | | Level | | | LAB | | + +-------+ + + + + + | Specimen | + + | | + + + +---------+ + + | Performing | Address | City/State/Zipcode | Phone Number | | Organization | | | | + +---------+ + + | EXTERNAL LAB | | | | + +---------+ + + Acetaminophen Level (05/18/2013 5:31 PM PST) + +-------+ + + + | Component | Value | Ref Range | Performed | Pathologist | | | | | At | Signature | + +-------+ + + + | Acetaminoph | 2 | 10.0 - 20.0 | EXTERNAL | | | en, S | | ug/mL | LAB | | + +-------+ + + + + + | Specimen | + + | | + + + +---------+ + + | Performing | Address | City/State/Zipcode | Phone Number | | Organization | | | | + +---------+ + + | EXTERNAL LAB | | | | + +---------+ + + Comprehensive Metabolic Panel (05/18/2013 5:31 PM PST) + +-------+ + + + | Component | Value | Ref Range | Performed | Pathologist | | | | | At | Signature | + +-------+ + + + | Sodium | 142 | 132 - 143 | EXTERNAL | | | | | mmol/L | LAB | | + +-------+ + + + | Potassium | 3.5 | 3.3 - 4.9 | EXTERNAL | | | | | mmol/L | LAB | | + +-------+ + + + | Cl | 109 | 95 - 108 mmol/L | EXTERNAL [...] +-------+ + + + | Calcium | 8.8 | 8.3 - 10.0 | EXTERNAL | [...] +-------+ + + + | BUN/Creatin | 11.1 | 7.0 - 24.0 | EXTERNAL | | | ine Ratio | | RATIO | LAB | | + +-------+ + + + | Bilirubin, | 0.2 | <=1.2 mg/dL | EXTERNAL | | | Total | | | LAB | | + +-------+ + + + | Protein, | 8 | 6.6 - 8.5 g/dL | EXTERNAL | | | Total | | | LAB | | + +-------+ + + + | Albumin | 3.9 | 3.0 - 4.5 g/dL | EXTERNAL | | | | | | LAB | | + +-------+ + + + | Alkaline | 140 | 60 - 270 U/L | EXTERNAL | | | Phosphatase | | | LAB | | + +-------+ + + + | ALT, | 27 | 18 - 63 U/L | EXTERNAL | | | External | | | LAB | | + +-------+ + + + | AST, | 15 | <=38 U/L | EXTERNAL | | [...] | | | + +---------+ + + Ethanol (05/18/2013 5:31 PM PST) + +-------+ + + + | Component | Value | Ref Range | Performed | Pathologist | | | | | At | Signature | + +-------+ + + + | Alcohol, | 10 | <=10 mg/dL | EXTERNAL | | | Ethyl (B) | | | LAB | | + [...]
--- OUTSIDE RECORDS SUMMARY | ~2019-05-12 | XMS | Encounter Summary ---
Demographics + + + | Address | [address] | | | [place] [address] | + + + | Home Phone | | + + + | Preferred Language | Unknown | + + + | Marital Status | | + + + | Quaker Affiliation | Unknown | + + + | Race | Unknown | + + + | Ethnic Group | Unknown | + + + Author + + + | Author | [facility] | | | and [place] | + + + | Organization | [facility] | | | [...] Team Providers + +------+ + | Care Physical Education Department Chair Name | Role | Phone | + [...] | [address] [place] | [place] [address] | | | | | [address] | [phone] | | | | | [phone] | | | +--------+ + + + [...]
--- OUTSIDE RECORDS SUMMARY | ~2019-05-12 | XMS | Encounter Summary ---
Demographics + + + | Address | [address] | | | [place] [address] | + + + | Home Phone | | + + + | Preferred Language | Unknown | + + + | Marital Status | | + + + | Yarsani Affiliation | Unknown | + + + | Race | Unknown | + + + | Ethnic Group | Unknown | + + + Author + + + | Author | [facility] | | | and [place] | + + + | Organization | [facility] | | | [...] Team Providers + +------+ + | Care Sports Psychologist Name | Role | Phone | + [...] | | [address] [place] | [place] [address] | | | | | [address] | [phone] | | | | | [phone] | | | +--------+ + + + [...]
--- OUTSIDE RECORDS SUMMARY | ~2019-05-12 | XMS | Encounter Summary ---
Demographics + + + | Address | [address] | | | [place] [address] | + + + | Home Phone | | + + + | Preferred Language | Unknown | + + + | Marital Status | | + + + | Zoroastrianism Affiliation | Unknown | + + + | Race | Unknown | + + + | Ethnic Group | Unknown | + + + Author + + + | Author | [facility] | | | and [place] | + + + | Organization | [facility] | | | [...] Team Providers + +------+ + | Care Media Sales Executive Name | Role | Phone | + +------+ + PCP | Unavailable | + +------+ + Encounter Details +--------+ + + + + | Date | Type | Department | Care Team | Description | +--------+ + + + + | 04/23/ | Hospital | [facility] | Elpidio Gaona | | | 2012 | Encounter | HOSPITAL EMERGENCY | [address] | | | | | C[address] | [place], | | | | | [address] [place] | [place] [address] | | | | | [address] | [phone] | | | | | [phone] | | | +--------+ + + + [...]
--- OUTSIDE RECORDS SUMMARY | ~2019-05-12 | XMS | Encounter Summary ---
Demographics + + + | Address | [address] | | | [place] [address] | + + + | Home Phone [...] + + | Author | [facility] | | | and [place] | + + + | Organization | [facility] | | | [...] Team Providers + +------+ + | Care Store Keeper Name | Role | Phone | + [...] | | | [address] [place] | [place] [address] | | | | | [address] | [phone] | | | | | [phone] | | | +--------+ + + + [...]
--- OUTSIDE RECORDS SUMMARY | ~2019-05-12 | XMS | Encounter Summary ---
Demographics + + + | Address | [address] | | | [place] [address] | + + + | Home Phone | | + + + | Preferred Language | Unknown | + + + | Marital Status | | + + + | Scientology Affiliation | Unknown | + + + | Race | Unknown | + + + | Ethnic Group | Unknown | + + + Author + + + | Author | [facility] | | | and [place] | + + + | Organization | [facility] | | | [...] Team Providers + +------+ + | Care Housing Installer Name | Role | Phone | + +------+ + PCP | Unavailable | + +------+ + Encounter Details +--------+ + + + + | Date | Type | Department | Care Team | Description | +--------+ + + + + | [facility] | Wilfred Arguello | | | 2013 | Encounter | HOSPITAL EMERGENCY | [address] | | | | | [place] [address] | [facility] | | | | | [address] [place] | [place] [address] | | | | | [address] | [phone] | | | | | [phone] | | | +--------+ + + + [...]
--- OUTSIDE RECORDS SUMMARY | ~2019-05-12 | XMS | Encounter Summary ---
Demographics + + + | Address | [address] | | | [place] [address] | + + + | Home Phone | | + + + | Preferred Language | Unknown | + + + | Marital Status | | + + + | Methodist Affiliation | Unknown | + + + | Race | Unknown | + + + | Ethnic Group | Unknown | + + + Author + + + | Author | [facility] | | | and [place] | + + + | Organization | [facility] | | | and [...] Team Providers + +------+ + | Care Litigation Legal Secretary Name | Role | Phone | + +------+ + PCP | Unavailable | + +------+ + Encounter Details +--------+ + + + + | Date | Type | Department | Care Team | Description | +--------+ + + + + | 05/01/ | Hospital | [facility] | Elpidio Gaona | | | 2012 | Encounter | HOSPITAL EMERGENCY | [address] | | | | | CENTER [address] | [place], | | | | | [place] | [place] [address] | | | | | [address] | [phone] | | | | | [phone] | | | +--------+ + + + [...]
--- OUTSIDE RECORDS SUMMARY | ~2019-05-12 | XMS | Encounter Summary ---
Demographics + + + | Address | [address] | | | [place] [address] | + + + | Home Phone | | + + + | Preferred Language | Unknown | + + + | Marital Status | | + + + | Muslim Affiliation | Unknown | + + + | Race | Unknown | + + + | Ethnic Group | Unknown | + + + Author + + + | Author | [facility] | | | and [place] | + + + | Organization | [facility] | | | [...] Team Providers + +------+ + | Care Home Service Director Name | Role | Phone | + +------+ + PCP | Unavailable | + +------+ + Encounter Details +--------+ + + + + | Date | Type | Department | Care Team | Description | +--------+ + + + + | 04/23/ | Hospital | [facility] | Annette Engel, | | | 2012 | Encounter | HOSPITAL ICU [address] | [address] | | | | | [address] | [place] [address] | | | | | [place] | [phone] | | | | | [address] | | | | | | [phone] | | | +--------+ + + + [...]
--- OUTSIDE RECORDS SUMMARY | ~2019-05-12 | XMS | Encounter Summary ---
Demographics + + + | Address | [address] | | | [place] [address] | + + + | Home Phone | | + + + | Preferred Language | Unknown | + + + | Marital Status | | + + + | Rastafari Affiliation | Unknown | + + + | Race | Unknown | + + + | Ethnic Group | Unknown | + + + Author + + + | Author | [facility] | | | and [place] | + + + | Organization | [facility] | | | [...] Team Providers + +------+ + | Care Product Marketing Manager Name | Role | Phone | + +------+ + PCP | Unavailable | + +------+ + Encounter Details +--------+ + + + + | Date | Type | Department | Care Team | Description | +--------+ + + + + | 03/20/ | Hospital | [facility] | Elpidio Gaona | | | 2012 | Encounter | HOSPITAL EMERGENCY | [address] | | | | | C[address] | [place], | | | | | [place] | [place] [address] | | | | | [address] | [phone] | | | | | [phone] | | | +--------+ + + + [...]
--- OUTSIDE RECORDS SUMMARY | ~2019-05-12 | XMS | Encounter Summary ---
Demographics + + + | Address | [address] [address] | | | [place] [address] | + + + | Home Phone | | + + + | Preferred Language | Unknown | + + + | Marital Status | | + + + | Faith Affiliation | Unknown | + + + | Race | Unknown | + + + | Ethnic Group | Unknown | + + + Author + + + | Author | [facility] | | | and [place] | + + + | Organization | [facility] | | [...] Team Providers + +------+ + | Care Auto Tech Name | Role | Phone | + [...] | | [place] | [place] [address] | | | | | [address] | [phone] | | | | | [phone] | | | +--------+ + + + [...]
--- OUTSIDE RECORDS SUMMARY | ~2019-05-12 | XMS | Encounter Summary ---
Demographics + + + | Address | [address] | | | [place] [address] | + + + | Home Phone | | + + + | Preferred Language | Unknown | + + + | Marital Status | | + + + | Jain Affiliation | Unknown | + + + | Race | Unknown | + + + | Ethnic Group | Unknown | + + + Author + + + | Author | [facility] | | | and [place] | + + + | Organization | [facility] | | [...] Providers + +------+ + | Care Nuclear Waste Process Operator Name | Role | Phone | [...] | | [place] | [place] [address] | | | | | [address] | [phone] | | | | | [phone] | | | +--------+ + + + [...]
--- OUTSIDE RECORDS SUMMARY | ~2019-05-12 | XMS | Encounter Summary ---
Demographics + + + | Address | [address] | | | [place] [address] | + + + | Home Phone | | + + + | Preferred Language | Unknown | + + + | Marital Status | | + + + | Pentecostalism Affiliation | Unknown | + + + | Race | Unknown | + + + | Ethnic Group | Unknown | + + + Author + + + | Author | [facility] | | | and [place] | + + + | Organization | [facility] | | [...] Team Providers + +------+ + | Care Senior Government Program Analyst Name | Role | Phone | + +------+ + PCP | Unavailable | + +------+ + Encounter Details +--------+ + + + + | Date | Type | Department | Care Team | Description | +--------+ + + + + | 01/28/ | Hospital | [facility] | Yuliana Rivera | | | 2012 | Encounter | HOSPITAL RESPIRATORY | [address] | | | | | THERAPY [address] | [place] [address] | | | | | [address] [place] | [phone] | | | | | [address] | | | | | | [phone] | | | +--------+ + + + [...]
--- OUTSIDE RECORDS SUMMARY | ~2019-05-12 | XMS | Encounter Summary ---
Demographics + + + | Address | [address] [facility] | | | [place] [address] | + + + | Home Phone | | + + + | Preferred Language | Unknown | + + + | Marital Status | | + + + | Mandaen Affiliation | Unknown | + + + [...] Team Providers + +------+ + | Care Drier Name | Role | Phone | + +------+ + PCP | Unavailable | + +------+ + Encounter Details +--------+ + + + + | Date | Type | Department | Care Team | Description | +--------+ + + + + | 06/15/ | [facility] | [facility] | Wilfred Arguello | | | 2013 | Encounter | HOSPITAL EMERGENCY | [address] | | | | | [place] [address] | [facility] | | | | | [address] [place] | [place] [address] | | | | | [address] | [phone] | | | | | [phone] | | | +--------+ + + + [...]
--- OUTSIDE RECORDS SUMMARY | ~2019-05-12 | XMS | Encounter Summary ---
Demographics + + + | Address | [address] [facility] | | | [place] [address] | + + + | Home Phone | | + + + | Preferred Language | Unknown | + + + | Marital Status | | + + + | Amish Affiliation | Unknown | + + + | Race | Unknown | + + + | Ethnic Group | Unknown | + + + Author + + + | Author | [facility] | | | and [place] | + + + | Organization | [facility] | | | and [...] Team Providers + +------+ + | Care Loan Broker Name | Role | Phone | + [...] | | [place] | [place] [address] | | | | | [address] | [phone] | | | | | [phone] | | | +--------+ + + + [...]
--- OUTSIDE RECORDS SUMMARY | ~2019-05-12 | XMS | Encounter Summary ---
Demographics + + + | Address | [address] [facility] [address] [facility] | | | [place] [address] | + + + | Home Phone | | + + + | Preferred Language | Unknown | + + + | Marital Status | | + + + | Yarsanism Affiliation | Unknown | + + + | Race | Unknown | + + + | Ethnic Group | Unknown | + + + Author + + + | Author | [facility] | | | and [place] | + + + | Organization | [facility] | | | [...] Team Providers + +------+ + | Care Pleating Supervisor Name | Role | Phone | + [...] | | | [place] | [address] | | | | | [address] | [phone] | | | | | [phone] | | | +--------+ + + + [...]
--- OUTSIDE RECORDS SUMMARY | ~2019-05-12 | XMS | Encounter Summary ---
Demographics + + + | Address | [address] | | | [place] [address] | + + + | Home Phone | | + + + | Preferred Language | Unknown | + + + | Marital Status | | + + + | Anabaptism Affiliation | Unknown | + + + | Race | Unknown | + + + | Ethnic Group | Unknown | + + + Author + + + | Author | [facility] | | | and [place] | + + + | Organization | [facility] | | [...] Team Providers + +------+ + | Care Full Stack Software Developer Name | Role | Phone | + [...] | [address] [place] | [place] [address] | | | | | [id number] | [phone] | | | | | [phone] | | | +--------+ + + + [...] - 1.030 | EXTERNAL | | | [place], | | | LAB | | | [...]
[~2019-05-12 17:48] MED LIST changes: +ATIVAN1 MG PO; +KEPPRA500 MG PO
--- OUTSIDE RECORDS SUMMARY | 2019-05-12 17:54 | XMS ---
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 Care History Medical/Surgical 03/12/2019 [facility] CASE MANAGEMENT REFERRAL MADE- PATIENT HAS [facility] AND NO PCP. E.[place] VISIT COUNT (12 MO.) 1 [facility] 1 [facility]. 2 [facility] 2 [facility] Emergency 2 [facility] 3 [facility] TOTAL 11 NOTE: Visits indicate total known visits. ED/UCC VISIT TRACKING (12 MO.) 05/12/2019 17:52 ANA Julian TYPE: Emergency COMPLAINT: - INFECTION (E COLI) 05/09/2019 17:13 Michelle DIXON TYPE: Emergency COMPLAINT: - SEIZURE 03/12/2019 09:09 [facility] [place] TYPE: Emergency COMPLAINT: - SEIZURE DIAGNOSES: - Epilepsy, unsp, not intractable, without status epilepticus - Other fpc (current) drug therapy - Nicotine dependence, unspecified, uncomplicated - Unspecified convulsions 12/23/2018 19:06 [facility] TYPE: Emergency DIAGNOSES: 0. EMS ANXIETY 12/20/2018 12:17 [facility] [place] [facility] Emergency TYPE: Emergency DIAGNOSES: 0. FOOT VERSES TRUCK FELL OFF ALICIA 12/16/2018 01:24 [facility] Emergency TYPE: Emergency DIAGNOSES: 0. SIEZING, DIABETIC 10/23/2018 11:49 [facility] TYPE: Emergency DIAGNOSES: 0. R FLANK PAIN 10/18/2018 19:29 [facility] TYPE: Emergency DIAGNOSES: 0. EMS SEIZURES 09/19/2018 01:08 [facility] [place] TYPE: Emergency COMPLAINT: - seizure DIAGNOSES: - Cannabis use, unspecified, uncomplicated - Paranoid schizophrenia - Bipolar disorder, unspecified - Nicotine dependence, cigarettes, uncomplicated - Cannabis use, unspecified, uncomplicated - Personal history of other mental and behavioral disorders - Nicotine dependence, cigarettes, uncomplicated - Allergy status to analgesic agent status - Allergy status to analgesic agent status - Personal history of other mental and behavioral disorders - Allergy status to penicillin - Unspecified convulsions - Bipolar disorder, unspecified - Allergy status to penicillin - Unspecified convulsions - Paranoid schizophrenia 09/10/2018 04:20 [facility] [place] TYPE: Emergency COMPLAINT: - PT C/O SEIZURES ABOUT 15 MINS AGO, LASTING 1-1.5 MINS EA TIME DIAGNOSES: - Procedure and treatment not carried out for other reasons - Unspecified convulsions 08/15/2018 02:[address] [facility] [place] TYPE: Emergency DIAGNOSES: - SEIZURES - Unspecified convulsions INPATIENT VISIT TRACKING (12 MO.) No inpatient visits to display in this time frame [id number]
[2019-05-12] MEDS ORDERED: LAMOTRIGINE150 MG PO (18:08)
[2019-05-12] MEDS ORDERED: GLUCAGON EMERGEN1 MG INJ (18:08)
[2019-05-12] MEDS ORDERED: KEPPRA750 MG PO (21:09)
== END 2019-05-12 21:15 | disposition home or self-care (01) ==
LOC: ED 17:48
DX: R11.10 Vomiting, unspecified (principal); R19.7 Diarrhea, unspecified; R56.9 Unspecified convulsions; F31.9 Bipolar disorder, unspecified; F20.9 Schizophrenia, unspecified; F17.200 Nicotine dependence, unspecified, uncomplicated; Z91.018 Allergy to other foods; Z91.040 Latex allergy status; Z88.8 Allergy status to other drugs, medicaments and biological substances; Z88.5 Allergy status to narcotic agent; Z79.899 Other long term (current) drug therapy
CPT/HCPCS: 80053; 81001; 82542; 84703; 85025; 96374; 96375; 99283-25; J1953; J2405; J7030; J7060